=== PATIENT | female | born 1955 | race African-American/Black ===

== ENCOUNTER → 2021-04-07 07:27 | Outpatient (CLI) | payer MEDICAID, SELFPAY | PROVIDERS: Visit Provider Ophthalmology | DX: Z01.812 Encounter for preprocedural laboratory examination (principal); Z20.822 Contact with and (suspected) exposure to COVID-19 | CPT/HCPCS: U0003 ==

== ENCOUNTER 2021-04-10 08:35 | Day surgery (SDC) | payer MEDICARE, MEDICAID, SELFPAY ==
[2021-04-04 13:51] VITALS: BMI 44.9
[2021-04-10 09:27] VITALS: BP 140/72; PULSE 70; RESP 20; TEMP 36.3; O2SAT 100
[2021-04-10 09:55] LABS: POC Glucose,Bedside 73 (70-110)
[2021-04-10 10:33] VITALS: BP 151/93; PULSE 71; RESP 16; TEMP 36.6; O2SAT 99
== END 2021-04-10 10:40 | disposition home or self-care (01) ==
LOC: OUTP 08:39
PROVIDERS: PCP Family Medicine; Visit Provider Ophthalmology
PROC: (CPT 66821; principal; 2021-04-10 09:00)
DX: H26.491 Other secondary cataract, right eye (principal); Z96.1 Presence of intraocular lens; E11.9 Type 2 diabetes mellitus without complications; M19.90 Unspecified osteoarthritis, unspecified site; I48.91 Unspecified atrial fibrillation; F32.9 Major depressive disorder, single episode, unspecified; Z79.82 Long term (current) use of aspirin; Z79.84 Long term (current) use of oral hypoglycemic drugs; Z79.899 Other long term (current) drug therapy; Z86.018 Personal history of other benign neoplasm
CPT/HCPCS: 66821; 82962

== ENCOUNTER 2024-01-26 12:00 | Outpatient (CLI) | payer MEDICAID, SELFPAY | END 2024-01-26 23:59 | LOC: RT 12:01 | PROVIDERS: PCP Family Medicine; Visit Provider Nurse Practitioner Family | DX: R06.09 Other forms of dyspnea (principal); R00.2 Palpitations; R01.1 Cardiac murmur, unspecified; R09.89 Other specified symptoms and signs involving the circulatory and respiratory systems; R60.9 Edema, unspecified; I65.23 Occlusion and stenosis of bilateral carotid arteries | CPT/HCPCS: 93270 ==

== ENCOUNTER 2024-02-20 08:43 | Outpatient (CLI) | payer MEDICARE, SELFPAY ==
--- NOTE | 2024-02-20 08:47 | CA_ITS ---
FINAL REPORT TECHNIQUE: Color Doppler, duplex Doppler and donnelly scale sonography of the bilateral neck arterial vasculature was performed. Velocities were measured in the carotid arteries. Stenosis evaluation based on the validated velocity criteria. CLINICAL HISTORY: PATRICIA, carotid bruit, HTN, hyperlipidemia, DM, dizziness, retinal issues with bilateral eyes(received injections to aid with this). FINDINGS: The peak systolic velocity of the right common carotid artery is 126 cm/s. The peak systolic velocity of the right internal carotid artery is 138 cm/s and end diastolic velocity 30 cm/s. The ICA/CCA ratio is 1.1. A small amount of plaque is present. The right external carotid artery is patent. The right vertebral artery is patent with antegrade flow. The peak systolic velocity of the left common carotid artery is 89 cm/s. The peak systolic velocity of the left internal carotid artery is 82 cm/s and end diastolic velocity 31 cm/s. The ICA/CCA ratio is 1.1. A small amount of plaque is present. The left external carotid artery is patent.The left vertebral artery is patent with antegrade flow. IMPRESSION: Less than 50% bilateral carotid stenoses. Bilateral patent vertebral arteries with antegrade flow. If indicated, CTA or MRA could further evaluate. Reviewed, Interpreted and Dictated by Patrciio Price III, MD Transcribed by Nora Garcia Authenticated and . [facility]
== END 2024-02-20 23:59 ==
LOC: RT 08:44
PROVIDERS: PCP Family Medicine; Visit Provider Nurse Practitioner Family
DX: R00.2 Palpitations (principal); R06.09 Other forms of dyspnea; R60.9 Edema, unspecified; R01.1 Cardiac murmur, unspecified; R09.89 Other specified symptoms and signs involving the circulatory and respiratory systems; I65.29 Occlusion and stenosis of unspecified carotid artery
CPT/HCPCS: 93880

== ENCOUNTER 2024-03-18 08:42 | Outpatient (CLI) | payer MEDICARE, SELFPAY ==
--- NOTE | 2024-03-18 08:43 | CA_ITS ---
APPROVED REPORT EXAM: Comprehensive 2D, Doppler, and color-flow Echocardiogram Agile Coach: Acacia Ortega CRT Ht: 5 ft 2 in Wt: 235lbs BSA: 2.05 BP: 142/60 mmHg Indications: Murmur, Palpitations, Peripheral Edema, Hyperlipidemia, Hypertension/HDD M-Mode Dimensions RVDd 2.11 cm (0.9-2.6) LA Diam 4.56 cm (1.9-4.0) LVDd 4.56 cm (3.5-5.7) LVDs 3.30 cm (3.5-5.7) IVSd 1.89 cm (0.6-1.1) PWd 0.98 cm (0.6-1.1) EF (Teich) 53.80% FS 27.60% EDV (Teich) 95.40 mL TAPSE 2.95 (<1.7) ESV (Teich) 44.10 mL LV Diastology E Decel Time 210 (160-240 msec) E/A Ratio 0.82 MED A' 12.40 cm/s LAT A' 11.10 cm/s Aortic Valve AO Peak GR. 9.00 mmHg Mitral Valve MV E Max Jude. 128.0 (40-130 cm/s) MV A Velocity 155.0 (40-130 cm/s) E/A Ratio 0.82 MV PHT 62.0 ms Pulmonary Valve PV Peak Velocity 142.0 (50-150 cm/s) Tricuspid Valve TR P. Velocity 284.00 cm/s RAP Estimate 10.00 mmHg RVSP 42.30 mmHg Left Ventricle The left ventricle is normal size. The left ventricular systolic function is normal. The left ventricular ejection fraction is within the normal range. Proximal septal thickening is noted. There is normal LV segmental wall motion. Diastolic function is indeterminate. LVEF is 55%. Right Ventricle The right ventricle is normal size. The right ventricular systolic function is normal. Atria The left atrium is mildly dilated. The right atrium is mildly dilated. There is no Doppler evidence of interatrial shunt. Aortic Valve The aortic valve is mildly thickened. There is no aortic valvular stenosis. Trace aortic regurgitation. Mitral Valve The mitral valve leaflets are mildly thickened. Mild mitral regurgitation. No evidence of mitral valve stenosis. Tricuspid Valve The tricuspid valve leaflets are thin and pliable. Mild tricuspid regurgitation. RVSP is 25-30 mmHg. Pulmonic Valve The pulmonary valve is normal in structure. Mild pulmonic regurgitation. Great Vessels The aortic root is normal in size. The ascending aorta is normal in size. IVC is normal in size and collapses >50% with inspiration. Pericardium There is no pericardial effusion. Other Information Study Quality: Fair Conclusion Normal biventricular systolic function. Mild biatrial dilation. Mild MR, mild TR, mild MD. Electronically signed by : Renetta Adame MD 03/22/2024 12:31:40
== END 2024-03-18 23:59 ==
LOC: RT 08:43
PROVIDERS: PCP Family Medicine; Visit Provider Nurse Practitioner Family
DX: R00.2 Palpitations (principal); R06.09 Other forms of dyspnea; R60.9 Edema, unspecified; R01.1 Cardiac murmur, unspecified; R09.89 Other specified symptoms and signs involving the circulatory and respiratory systems; I65.29 Occlusion and stenosis of unspecified carotid artery; R94.31 Abnormal electrocardiogram [ECG] [EKG]
CPT/HCPCS: 93306

== ENCOUNTER 2024-04-06 10:51 | Outpatient (CLI) | payer MEDICARE, MEDICAID, SELFPAY ==
--- NOTE | 2024-04-06 10:52 | NM_ITS ---
APPROVED REPORT Exam: Nuclear Stress Test Indication: chest pain...soa..palpitations Patient Location: Outpatient Stress Tech: Leigh Hidalgo [place] Tech:AUDELIA Ball RT(R)(N) Ht: 5 ft 2 in Wt: 235 lbs Bra Size: 46c HR: 81 bpm BP: 146/62 mmHg BSA: 2.05 m2 Rhythm: NSR TID: 1.09 BMI: 42.9 History: chest pain...soa..palpitations Procedure: Patient received 0.4 mg of intravenous Lexiscan, resting heart rate 81 bpm, resting blood pressure 146/62 mmHg, with Lexiscan maximum heart rate achieved was 94 bpm which is 85 % of the maximum predicted heart rate and blood pressure was 155/63 mmHg. With Lexiscan, patient denied any complaint of chest pain. The patient was not able to lay on her abdomen for prone images. Cardiac Stress and Resting SPECT Images: Cardiac Stress and Resting SPECT images were obtained using technetium 99m Myoview 31.7 mCi stress and 9.76 mCi at rest. Technically difficult study. Also, the patient could not lie on her abdomen. Therefore, prone stress imaging could not be performed. This may affect the diagnostic interpretation of the study findings. There is a large-sized, moderate, partially reversible perfusion defect in the anterior and anterolateral LV armando, as well as a large-sized, moderate, reversible perfusion defect in the inferior LV wall. Gated imaging demonstrates normal global LV systolic function. There is mild hypokinesis of the anterior and inferior LV armando. LVEF is calculated at 59%. Conclusion: Large-sized, moderate, partially reversible perfusion defect in the anterior and anterolateral LV armando, as well as a large-sized, moderate, reversible perfusion defect in the inferior LV wall. Gated imaging demonstrates normal global LV systolic function. There is mild hypokinesis of the anterior and inferior LV armando. LVEF is calculated at 59%. Electronically signed by : Renetta Adame MD 04/07/2024 12:56:42
[2024-04-06] MEDS: SODIUM CHLORIDE 0.9% 10ML SYR (RAD ONLY) 10 ML IV ×2 (13:40)
[2024-04-06] MEDS: REGADENOSON 0.4MG/5ML SYRINGE 0.400000000000000022 MG IV (13:40)
[2024-04-06] MEDS: ISOTOPE MYOVIEW (PER STUDY) 1 DOSE IV (13:40)
--- NOTE | 2024-04-06 15:03 | CA_ITS ---
APPROVED REPORT Exam: Pharmacologic Technologist: Leigh Hidalgo Ht: 5 ft 2 in Wt: 238 lbs BSA: 2.06 m2 HR: 75 bpm BP: 146/62 mmHg Rhythm: NSR Indications: Chest pain Medical History Medications: Amlodipine,,,,, Omeprazole,,,,, Aspirin,,,,, Metformin,,,,, Ferrous sulfate,,,,, Gabapentin,,,,, Vitamin D3,,,,, Atorvastatin,,,,, Toprol,,,,, Ropinirole,,,,, PERCOCET,,,,, FOLIC ACID,,,,, Stress Test Details Test: LEXISCAN HR Resting HR: 81 bpm Max Heart Rate (APMHR): 152 bpm Max HR Achieved: 94 bpm Target HR (85% APMHR): 129 bpm % of APMHR: 62 Recovery HR: 83 bpm BP Resting BP: 146.0/62.0 mmHg Max BP: 155.0/63.0 mmHg Recovery BP: 132.0/62.0 mmHg ECG Resting ECG: NSR, non-specific ST changes Stress ECG: No significant ST changes Arrhythmia: None Clinical Exercise duration: 04:02 min Highest Stage Achieved: Exercise capacity: 1.0 METs Stress ECG Conclusion Symptoms: Dyspnea, Chest pressure Arrhythmias/Ectopy: None ST-T Changes: No significant ST changes Conclusion: EKG non-diagnostic due to baseline abnormal ST depression. Myoview images are reported separately. Test Summary REST . . . . . . . Resting REST 03:13 . . 81 . 146/ 62 . . Stage 1 . . . . . . . Myoview Injected Stage 1 01:00 . . 90 . . . . Stage 2 . . . . . . . chest pressure Stage 2 01:00 . . 89 . . . . Stage 3 01:00 . . 86 . 155/ 63 . . Stage 4 01:00 . . 86 . 143/ 57 . . Stage 4 01:02 . . 85 . 143/ 57 . Stop exercise at 04:02 RECOVERY 01:00 . . 84 . . . . RECOVERY 02:00 . . 83 . 140/ 64 . . RECOVERY 03:00 . . 84 . 132/ 62 . . RECOVERY 04:00 . . 85 . 132/ 62 . . RECOVERY 04:17 . . 85 . 132/ 62 . . Electronically signed by : Renetta Adame MD 04/07/2024 12:32:51
== END 2024-04-06 23:59 | disposition home or self-care (01) ==
LOC: RAD 10:52
PROVIDERS: PCP Family Medicine; Visit Provider Nurse Practitioner
DX: R06.09 Other forms of dyspnea (principal); R00.2 Palpitations; R01.1 Cardiac murmur, unspecified; R09.89 Other specified symptoms and signs involving the circulatory and respiratory systems; I65.29 Occlusion and stenosis of unspecified carotid artery; R60.0 Localized edema
CPT/HCPCS: 78452; 93017; 93018; A9502; J2785

== ENCOUNTER 2024-05-12 08:00 | Day surgery (SDC) | payer MEDICARE, SELFPAY ==
[2024-05-12] VITALS (11 sets, daily range): BP systolic 139–174; BP diastolic 53–85; PULSE 65–89; RESP 16–20; O2SAT 95–100; BMI 43.0
--- NOTE | 2024-05-12 07:03 | IR_ITS ---
APPROVED REPORT Patient Location: Outpatient Candle Molder: AUDELIA Hansen RT (R) PROCEDURES Left heart catheterization Left ventriculogram Selective coronary angiogram INDICATION Abnormal Myoview, Angina pectoris Informed consent was obtained prior to the procedure. COMPLICATIONS None Estimated Blood Loss: Less than 10 mls TECHNIQUE One percent lidocaine used to anesthetize the right anterior aspect of the wrist. The right radial artery was accessed via the Seldinger technique. A 6 English sheath was placed in the right radial artery. 2.5 mg of Verapamil, 800 mcg of nitroglycerin, 1mg Lidocaine and 5000 U Heparin were given through the arterial sheath. The papa catheter was also used to perform left heart catheterization, left ventriculogram and selective coronary angiogram. At the end of the procedure the sheath was removed good hemostasis was achieved using Traclet band, patient was transferred to the postop holding area in stable condition. ANGIOGRAPHIC RESULTS The left main artery Normal The left anterior descending artery Is angiographically normal however tortuous in the mid and distal segment The circumflex artery Nondominant normal The right coronary artery Large dominant normal The DIAZ ventriculogram reveals Normal 65% The left ventricular end-diastolic pressure 15 mmHg IMPRESSION Normal coronary arteries Normal ejection fraction Borderline LVEDP Tortuous vessels consistent with hypertensive vasculopathy PLAN 1. Medical management Electronically signed by : Michael Donis MD 05/12/2024 10:28:14
[2024-05-12 08:44] LABS: Basophils % 0.4 % (0.1-2.0); Eosinophils # 0.3 K/mm3 (0.0-0.4); Eosinophils % 3.3 % (0.1-12.0); Hemoglobin 12.5 g/dL (12.2-16.2); Lymphocytes # 1.8 K/mm3 (0.7-4.5); Lymphocytes % 16.9 % (10-50); Mean Corpuscular HGB Conc 30.5 g/dL (31.8-35.4); Mean Corpuscular Hemoglobin 26.8 pg (27.0-31.2); Mean Corpuscular Volume 88.1 fl (81-99); Mean Platelet Volume 8.6 fl (7.4-10.4); Monocytes # 0.4 K/mm3 (0.1-1.0); Neutrophils # 7.9 K/mm3 (1.8-7.8); Neutrophils % 75.4 % (37.0-80.0); Platelet Count 222 K/mm3 (142-424); Red Blood Count 4.66 M/mm3 (4.20-5.40); Red Cell Distribution Width 14.9 % (11.5-17.5); White Blood Count 10.4 K/mm3 (4.8-10.8)
[2024-05-12 08:52] LABS: Chloride 105 mmol/L (98-107); Potassium 4.1 mmoL/L (3.5-5.1); Sodium 139 mmol/L (136-145)
[2024-05-12 08:55] LABS: Anion Gap 11.1 mEq/L (5-15); Blood Urea Nitrogen 16 mg/dl (7-17); Carbon Dioxide 27 mmol/L (22.0-30.0); Creatinine Clearance Estimated 42 mL/min (50-200); Estimated Glomerular Filt Rate 99 ml/min (>60); GFR (African American) 120 ML/MIN (>60); Glucose 71 mg/dl (74-100)
[2024-05-12] MEDS: 0.9 % SODIUM CHLORIDE 500 ML 25 ML IV (09:57)
[2024-05-12] MEDS: HEPARIN 1,000 UNITS/500ML NS (CATH LAB) 3000 UNIT IV (09:57)
[2024-05-12] MEDS: VERAPAMIL 2.5MG/ML 2ML VIAL 2.5 MG IV (09:58)
[2024-05-12] MEDS: HEPARIN 1,000 UNITS/ML 10ML VIAL (CATH LAB) 10000 UNIT IV (09:58)
[2024-05-12] MEDS: diphenhydrAMINE 50MG/ML VIAL 50 MG IV (09:58)
[2024-05-12] MEDS: LIDOCAINE 1% 10ML MDV 20 ML IJ (09:58)
[2024-05-12] MEDS: NITROGLYCERIN 800MCG/8ML SYR (CATH LAB) 800 MCG IA (09:58)
[2024-05-12] MEDS: FENTANYL 100MCG/2ML VIAL 50 MCG IV ×2 (10:18→10:26)
[2024-05-12] MEDS: MIDAZOLAM HCL 1MG/1ML 5ML VIAL 1 MG IV ×2 (10:18→10:26)
[2024-05-12] MEDS: IOPAMIDOL-370 (76%);100ML BOTTLE 60 ML IV (12:50)
== END 2024-05-12 13:31 | disposition home or self-care (01) ==
PROVIDERS: PCP Family Medicine; Visit Provider Internal Medicine
DX: R94.39 Abnormal result of other cardiovascular function study (principal); I20.89 Other forms of angina pectoris; I47.20 Ventricular tachycardia, unspecified; E11.9 Type 2 diabetes mellitus without complications; E78.2 Mixed hyperlipidemia; I10 Essential (primary) hypertension; I65.23 Occlusion and stenosis of bilateral carotid arteries; R09.89 Other specified symptoms and signs involving the circulatory and respiratory systems; R01.1 Cardiac murmur, unspecified; R60.0 Localized edema; R06.09 Other forms of dyspnea; R00.2 Palpitations; Z79.84 Long term (current) use of oral hypoglycemic drugs; Z79.899 Other long term (current) drug therapy
CPT/HCPCS: 80048; 85025; 93458; 99152; C1725; C1769; J1644; J2250; J3010; Q9967